=== PATIENT | male | born 1970 ===

== ENCOUNTER 2017-11-03 13:50 | Emergency (ER) | payer MEDICAID, OTHER ==
[2017-11-03 15:05] LABS: BASO # 0.1 K/uL (0.0-0.2); BASO % 0.7 % (0.0-2.0); EOS # 0.4 K/uL (0.0-0.7); EOS % 4.9 % (0.0-4.0); HEMOGLOBIN 15.3 g/dL (12.0-18.0); LYMPH # 1.8 K/uL (1.0-4.3); LYMPH % 20.6 % (20.0-40.0); MEAN CELL VOLUME 87.7 fL (80.0-94.0); MEAN CORPUSCULAR HEMOGLOBIN 30.2 pg (27.0-31.0); MEAN CORPUSCULAR HGB CONC 34.4 g/dL (33.0-37.0); MEAN PLATELET VOLUME 7.6 fL (7.2-11.7); MONO # 0.6 K/uL (0.0-0.8); MONO % 7.2 % (0.0-10.0); NEUT # 5.7 K/uL (1.8-7.0); NEUT % 66.6 % (50.0-75.0); RBC 5.08 Mil/uL (4.40-5.90); WHITE BLOOD COUNT 8.5 K/uL (4.8-10.8)
[2017-11-03 15:22] LABS: URINE BACTERIA OCC (<OCC); URINE BILIRUBIN NEGATIVE (NEGATIVE); URINE BLOOD NEGATIVE (NEGATIVE); URINE CLARITY Clear (Clear); URINE COLOR Yellow (YELLOW); URINE GLUCOSE (UA) NORMAL (Normal); URINE LEUKOCYTE ESTERASE NEG Leu/uL (Negative); URINE PROTEIN NEGATIVE (NEGATIVE); URINE UROBILINOGEN NORMAL mg/dL (0.2-1.0)
[2017-11-03 15:27] LABS: ALB/GLOB RATIO 1.2 (1.0-2.1); ALBUMIN 4.4 g/dL (3.5-5.0); ALT/SGPT 27 U/L (21-72); AST/SGOT 37 U/L (17-59); BLOOD UREA NITROGEN 10 mg/dL (9-20); CALCIUM 9.5 mg/dl (8.6-10.4); GFR AFRICAN-AMERICAN > 60; GFR NON-AFRICAN AMERICAN > 60
[2017-11-03 15:30] LABS: BARBITURATES, UR NEGATIVE (NEGATIVE); BENZODIAZEPINES, UR NEGATIVE (NEGATIVE); PHENCYCLIDINE, UR NEGATIVE (NEGATIVE)
[2017-11-03 15:48] LABS: OPIATES, UR POSITIVE (NEGATIVE)
--- NOTE | 2017-11-03 16:03 | C.PDOC ---
History Of Present Illness 46 y/o male presents to ED requesting detox from heroin, last use this morning. Patient denies suicidal ideation, homicidal ideation, hallucinations or any other physical complaints at this time. Time Seen by Provider: 11/03/17 14:44 Chief Complaint (Nursing): Substance Abuse History Per: Patient History/Exam Limitations: no limitations Onset/Duration Of Symptoms: Days Current Symptoms Are (Timing): Still Present Suicide/Self Injury Attempted (Context): None Past Medical History Reviewed: Historical Data, Nursing Documentation, Vital Signs Vital Signs: Last Vital Signs Temp 97.4 F L 11/03/17 17:31 Pulse 75 11/03/17 17:31 Resp 18 11/03/17 17:31 BP 133/91 H 11/03/17 17:31 Pulse Ox 98 11/03/17 17:51 - Medical History PMH: No Chronic Diseases Surgical History: No Surg Hx Family History: States: No Known Family Hx - Social History Hx Alcohol Use: No Hx Substance Use: Yes - Immunization History Hx Influenza Vaccination: Yes Review Of Systems Constitutional: Negative for: Fever, Chills Cardiovascular: Negative for: Chest Pain Respiratory: Negative for: Shortness of Breath Gastrointestinal: Negative for: Nausea, Vomiting Psych: Negative for: Suicidal ideation, Withdrawal Physical Exam - Physical Exam Appears: Non-toxic, No Acute Distress Skin: Warm, Dry, No Rash Head: Atraumatic, Normacephalic Eye(s): bilateral: Normal Inspection Oral Mucosa: Moist Neck: Normal ROM, Supple Cardiovascular: Rhythm Regular Respiratory: Normal Breath Sounds, No Rales, No Rhonchi, No Wheezing Gastrointestinal/Abdominal: Soft, No Tenderness, No Guarding, No Rebound Extremity: Normal ROM, Capillary Refill (<2 seconds) Neurological/Psych: Oriented x3, Normal Speech, Normal Cognition ED Course And Treatment - Laboratory Results Result Diagrams: 11/03/17 15:00 11/03/17 15:00 Lab Interpretation: Normal O2 Sat by Pulse Oximetry: 98 (RA) Pulse Ox Interpretation: Normal Progress Note: AT 4:00, pt is medically cleared for PES evaluation. Patient was seen by PES and admission arranged to detox s/o . After admission arranged, pt refused to wait longer and request AMA discharge. Pt advised, F/u with detox, return to ED to complete evaluation and tx at any time. Stable for discharge. Against Medical Advice - AMA Patient Left Against Medical Advice: The patient declines admission to the hospital and wishes to leave the Emergency Department. This action is against my medical advice. This decision was made with informed refusal. The patient was told that admission to the hospital is necessary. Explanation of the reasons why were discussed. The risks of leaving were explained to the patient and include, but are not limited to, worsening of known or currently unknown conditions, permanent disability and from undiagnosed or untreated conditions. The patient has the capacity to make this informed decision and understands my explanation of the current medical problem and risks of leaving. The patient voluntarily accepts these risks and signed an AMA form documenting our conversation. The patient was given the opportunity to ask questions and reconsider. The patient was encouraged to return to the Emergency Department at any time for further care. Disposition - Disposition Disposition: AGAINST MEDICAL ADVICE Disposition Time: 17:00 Condition: STABLE Forms: [email or web address] (Ukrainian) - Clinical Impression Clinical Impression: Opioid dependence - PA / INSTRUCTIONAL MATERIALS DIRECTOR / Resident Statement MD/DO has reviewed & agrees with the documentation as recorded. - Scribe Statement The provider has reviewed the documentation as recorded by the Scribayleen Wood All medical record entries made by the Mary Ellen were at my direction and personally dictated by me. I have reviewed the chart and agree that the record accurately reflects my personal performance of the history, physical exam, medical decision making, and the department course for this patient. I have also personally directed, reviewed, and agree with the discharge instructions and disposition.
[2017-11-03 17:31] VITALS: BP 133/91; PULSE 75; RESP 18; TEMP 97.4
[2017-11-03 17:34] VITALS: O2SAT 98
== END 2017-11-03 17:55 | disposition left against medical advice (07) ==
LOC: C.ER 13:50 → UNDOADMIN 17:00 → C.7D 17:00
DX: F11.20 Opioid dependence, uncomplicated (principal)